=== PATIENT | female | born 1955 | race Two or more races ===

== ENCOUNTER 2023-03-03 22:59 | Emergency (ER) | payer OTHER, MEDICARE ==
[~2023-03-03] VITALS: Ht 149.9 cm; Wt 66.7 kg
[2023-03-03 23:05] VITALS: BP 145/89; PULSE 84; RESP 16; TEMP 98.2; O2SAT 99
[2023-03-03] MEDS ORDERED: ONDANSETRON 4 MG/2 ML VIAL IVP ONE (23:15)
[2023-03-03] MEDS ORDERED: NACL 0.9% 1,000 ML IV ONE (23:15)
[2023-03-03 23:28] VITALS: BP 145/89; PULSE 82; RESP 14
[2023-03-03 23:34] LABS: BASOPHILS % (AUTO) 0.3 % (0.0-2.0); EOSINOPHILS % (AUTO) 0.6 % (0.0-4.0); LYMPHOCYTES % (AUTO) 14.2 % (20.5-51.1); MEAN CORPUSCULAR HEMOGLOBIN 29 pg (27-31); MEAN CORPUSCULAR HGB CONC 33 g/dL (33-37); MEAN CORPUSCULAR VOLUME 87.2 fL (80-94); MONOCYTES # (AUTO) 0.6 K/uL (0.8-1.0); MONOCYTES % (AUTO) 9.5 % (1.7-9.3); NEUTROPHILS # (AUTO) 5.1 K/uL (1.8-7.7); NEUTROPHILS % (AUTO) 75.4 % (42.2-75.2); PLATELET COUNT (AUTO) 241 K/uL (140-450); RED BLOOD CELL COUNT(AUTO) 4.47 MIL/uL (4.20-5.40); RED CELL DISTRIBUTION WIDTH 13.4 % (11.6-13.7); WHITE BLOOD COUNT (AUTO) 6.7 K/uL (4.8-10.8)
[2023-03-03 23:39] VITALS: O2SAT 99
[2023-03-03 23:44] LABS: ALBUMIN 3.9 g/dL (3.4-5.0); ANION GAP 20.9 (8-16); CALCIUM 8.7 mg/dL (8.5-10.1); CARBON DIOXIDE 21.1 mmol/L (21-32); CREATININE 0.7 mg/dL (0.6-1.3); TOTAL BILIRUBIN 0.7 mg/dL (0.0-1.0)
[2023-03-04] MEDS ORDERED: DICYCLOMINE 20 MG/2 ML VIAL IM ONE (00:20)
[2023-03-04] MEDS ORDERED: NACL 0.9% 1,000 ML IV ONE (01:00)
[2023-03-04] MEDS ORDERED: MORPHINE SULFATE 2 MG/ML SYR IVP STA (01:13)
[2023-03-04] MEDS ORDERED: diphenhydrAMINE 50 MG/ML VIAL IVP ONE (01:15)
[2023-03-04] MEDS ORDERED: METOCLOPRAMIDE 10 MG/2 ML INJ VIAL IVP ONE (01:15)
[2023-03-04] MEDS ORDERED: ONDANSETRON 4 MG/2 ML VIAL ONE (02:22)
[2023-03-04] MEDS ORDERED: ONDANSETRON 4 MG/2 ML VIAL IVP ONE (02:30)
[2023-03-04] MEDS ORDERED: ONDA-188 SL (02:53)
== END 2023-03-04 02:40 | disposition home or self-care (01) ==
LOC: MED 22:59
DX: R10.84 Generalized abdominal pain (principal); R19.7 Diarrhea, unspecified; R11.0 Nausea; R53.1 Weakness; Z79.899 Other long term (current) drug therapy
CPT/HCPCS: 36415; 80053; 83735; 85025; 96361; 96372; 96374; 96375; 96376; 99284; J0500; J1200; J2270; J2405; J2765; J7030